=== PATIENT | male | born 1965 | race Caucasian/White ===

== ENCOUNTER → 2024-10-10 | Outpatient (CLI) | payer BC, SELFPAY ==
--- NOTE | 2024-10-10 10:17 | XR_ITS ---
Examination: Right knee 4 views TECHNIQUE: AP oblique lateral axial right knee 4 views Exam date and time: October 10, 2024 1031 hours INDICATIONS: Onset right knee pain beginning 7 days ago. FINDINGS: No fracture or dislocation Small knee effusion No foreign body IMPRESSION: No fracture or dislocation Small knee effusion
== END | disposition home or self-care (01) ==
PROVIDERS: PCP Family Medicine; Referring Provider Nurse Practitioner Family; Visit Provider Nurse Practitioner Family
DX: M25.461 Effusion, right knee (principal)
CPT/HCPCS: 73564